=== PATIENT | male | born 1995 | race Caucasian/White ===

== ENCOUNTER 2018-10-10 08:20 | Emergency (ER) | payer MEDICAID, SELFPAY ==
--- NOTE | 2018-10-10 08:41 | W.ED.GENAD ---
Discharge Plan Disposition Patient Disposition: HOME Discharge Details Chief Complaint: Abd Prob Clinical Impression: Acute left flank pain, Renal calculus, left, Left leg swelling Primary Care Provider: Sierra Guy ED Provider: Pineda Landin Home Meds and New Rx's Prescriptions: No Action No Known Home Meds RF: 0 Discharge Instructions Instructions: Kidney Stones (ED) Additional Instructions: It is suspected that you had a kidney stone and have passed this. Please follow-up with your primary care physician. Be sure to discuss the fact that you likely had a renal stone. Please also discuss your left leg swelling. Additional outpatient diagnostic testing may be necessary. Call on Thursday to arrange follow-up. Return to the emergency department for any worsening or new concerning symptoms. Referrals: Sierra Guy, [employer] [Primary Care Provider] - Discharge Data Discharge Date/Time-TO BE ENTERED AT DEPARTURE: 10/10/18 10:59 Medical Decision Making 8:45 -- 23yo m here with left flank pain for the past 1-2 hours, now mild. No history of renal stones. Plan to obtain CT a/p to assess for acute surgical pathology including impacted renal stone vs other. Pain is currently tolerable. 9:30 -- Patient passed tiny stone in urine per nursing and now feels much better. Unfortunately, lab specimen was mislabeled and discarded by lab. No indication for emergent imaging at this time. We will give ibuprofen. 10:30 --urinalysis reviewed: Hematuria present, 0-2 WBCs and 0-2 to RBCs. Pain resolved. Plan at this time is to have the patient follow-up with PCP regarding his lower extremity edema. I explained that additional diagnostic testing may be necessary. He plans to call to schedule appointment on Thursday. I explained that he should return immediately for any worsening or new concerning symptoms. Patient verbalized understanding of discharge instructions. HPI General Mode of arrival: ambulatory. Date/Time Provider Initiated Documentation: 10/10/18 08:24. Limitations to Documentation: no limitations. Information obtained by: patient. HPI Narrative: 23-year-old male presents with chief complaint of flank pain. Patient notes he woke up this morning about 45 minutes prior to arrival with left lateral low back and flank pain. Pain is described as constant ache with intermittent sharp twinges. Pain is been 7/10 at its worst and is currently 1/10. He initially had some associated nausea. No vomiting. No fever. No dysuria or hematuria. No trauma. Related Data Home Medications Medication Instructions Recorded Confirmed Unknown [No Known Home Meds] 10/10/18 10/11/18 Allergies Allergy/AdvReac Type Severity Reaction Status Date / Time No Known Allergies Allergy Verified 10/11/18 15:05 Review of Systems Review of Systems All systems reviewed & are unremarkable except as noted in HPI and below Constitutional Denies fever(s) Hematologic/Lymphatic Comments: lymphedema chronic intermittent [facility] Medical History Obesity (Chronic 04/25/15) Leg edema, left (Chronic 02/23/17) Hypertriglyceridemia (Chronic 09/14/14) BMI 39.0-39.9,adult (Chronic 09/12/14) Attention deficit hyperactivity disorder, 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) History of chicken pox (~1995) Surgical History Tooth extraction Family History Other Diabetes Mother Diabetes Social History Smoking/Tobacco Use Status: Never Alcohol Intake: current Alcohol Intake frequency: a few times a month Drug use: Never Substance use type: does not use Seatbelt use: always 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 Working smoke detector in home: Yes Fire extinguisher in home: Yes Carbon monox detector in home: Yes Firearms in home: Yes Firearms unloaded and locked: Yes Do you feel safe at home: Yes Do you feel safe in your relationship?: Yes Exam Const General: cooperative and no acute distress [facility] Head: normocephalic and atraumatic Mouth: moist mucous membranes Eyes Conjunctivae: normal conjunctivae Sclera: normal sclerae EOM: EOM intact bilaterally Neck Neck: trachea midline Resp Auscultation: clear to auscultation bilaterally, no rales, no rhonchi and no wheezes Cardio Jugular venous pressure: no JVD Rate: regular rate and not tachycardic Rhythm: regular rhythm GI Palpation: soft, not firm, no guarding, no masses, not rigid and nontender Skin General skin exam: no rashes or lesions noted Neuro General: alert, awake and tone normal Extrem General: no edema Psych Appearance: grossly normal
--- NOTE | 2018-10-10 08:44 | ED.GENADUL_ITS ---
Discharge Plan Disposition Patient Disposition: HOME Discharge Details Chief Complaint: Abd Prob Clinical Impression: Acute left flank pain, Renal calculus, left, Left leg swelling Primary Care Provider: Sierra Guy ED Provider: Pineda Landin Home Meds and New Rx's Prescriptions: No Action No Known Home Meds RF: 0 Discharge Instructions Instructions: Kidney Stones (ED) Additional Instructions: It is suspected that you had a kidney stone and have passed this. Please follow-up with your primary care physician. Be sure to discuss the fact that you likely had a renal stone. Please also discuss your left leg swelling. Additional outpatient diagnostic testing may be necessary. Call on Thursday to arrange follow-up. Return to the emergency department for any worsening or new concerning symptoms. Referrals: Sierra Guy, [employer] DEVEL[employer] [Primary Care Provider] - Discharge Data Discharge Date/Time-TO BE ENTERED AT DEPARTURE: 10/10/18 10:59 Medical Decision Making 8:45 -- 23yo m here with left flank pain for the past 1-2 hours, now mild. No history of renal stones. Plan to obtain CT a/p to assess for acute surgical pathology including impacted renal stone vs other. Pain is currently tolerable. 9:30 -- Patient passed tiny stone in urine per nursing and now feels much better. Unfortunately, lab specimen was mislabeled and discarded by lab. No indication for emergent imaging at this time. We will give ibuprofen. 10:30 --urinalysis reviewed: Hematuria present, 0-2 WBCs and 0-2 to RBCs. Pain resolved. Plan at this time is to have the patient follow-up with PCP regarding his lower extremity edema. I explained that additional diagnostic testing may be necessary. He plans to call to schedule appointment on Thursday. I explained that he should return immediately for any worsening or new concerning symptoms. Patient verbalized understanding of discharge instructions. HPI General Mode of arrival: ambulatory . Date/Time Provider Initiated Documentation: 10/10/18 08:24 . Limitations to Documentation: no limitations . Information obtained by: patient . HPI Narrative: 23-year-old male presents with chief complaint of flank pain. Patient notes he woke up this morning about 45 minutes prior to arrival with left lateral low back and flank pain. Pain is described as constant ache with intermittent sharp twinges. Pain is been 7/10 at its worst and is currently 1/10. He initially had some associated nausea. No vomiting. No fever. No dysuria or hematuria. No trauma. Related Data Home Medications Medication Instructions Recorded Confirmed Unknown [No Known Home Meds] 10/10/18 10/11/18 Allergies Allergy/AdvReac Type Severity Reaction Status Date / Time No Known Allergies Allergy Verified 10/11/18 15:05 Review of Systems Review of Systems All systems reviewed & are unremarkable except as noted in HPI and below Constitutional Denies fever(s) Hematologic/Lymphatic Comments: lymphedema chronic intermittent [facility] Medical History Obesity (Chronic 04/25/15) Leg edema, left (Chronic 02/23/17) Hypertriglyceridemia (Chronic 09/14/14) BMI 39.0-39.9,adult (Chronic 09/12/14) Attention deficit hyperactivity disorder, 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) History of chicken pox (~1995) Surgical History Tooth extraction Family History Other Diabetes Mother Diabetes Social History Smoking/Tobacco Use Status: Never Alcohol Intake: current Alcohol Intake frequency: a few times a month Drug use: Never Substance use type: does not use Seatbelt use: always 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 Working smoke detector in home: Yes Fire extinguisher in home: Yes Carbon monox detector in home: Yes Firearms in home: Yes Firearms unloaded and locked: Yes Do you feel safe at home: Yes Do you feel safe in your relationship?: Yes Exam Const General: cooperative and no acute distress [facility] Head: normocephalic and atraumatic Mouth: moist mucous membranes Eyes Conjunctivae: normal conjunctivae Sclera: normal sclerae EOM: EOM intact bilaterally Neck Neck: trachea midline Resp Auscultation: clear to auscultation bilaterally, no rales, no rhonchi and no wheezes Cardio Jugular venous pressure: no JVD Rate: regular rate and not tachycardic Rhythm: regular rhythm GI Palpation: soft, not firm, no guarding, no masses, not rigid and nontender Skin General skin exam: no rashes or lesions noted Neuro General: alert, awake and tone normal Extrem General: no edema Psych Appearance: grossly normal
--- NOTE | 2018-10-10 08:44 | NUR.NOTE ---
Nursing Note: pt awoke at 0730 with sharp LLQ abdominal pain described as coming in waves pt too 1000 MG Tylenol which has decreased pain 6/10 to a 2/10
[2018-10-10 08:46] VITALS: BP 112/54; PULSE 67; RESP 18; TEMP 37.3; O2SAT 98
[2018-10-10 09:59] LABS: Bilirubin Negative (Negative); Blood Small (Negative); Clarity Clear; Glucose Negative (Negative); Ketones Negative (Negative); Leukocyte Esterase Negative (Negative); Nitrite Negative (Negative); Specific Gravity 1.025 (1.005-1.025); Urobilinogen 0.2 EU/dL (Up TO 0.2)
[2018-10-10 10:23] LABS: Epithelial Cells Few HPF (Negative); RBC 0-2 (0-2); WBC 0-2 HPF (0-5)
[2018-10-10 10:24] LABS: Bacteria Negative HPF (Negative); C & S Indicated? No; Casts Negative LPF (Negative); Crystals Negative HPF (Negative); Mucus Trace (Negative)
[2018-10-10 11:02] VITALS: BP 112/54; PULSE 67; RESP 18; TEMP 37.3; O2SAT 98
== END 2018-10-10 10:59 | disposition home or self-care (01) ==
PROVIDERS: Emergency Provider Student in an Organized Health Care Education/Training Program; PCP Nurse Practitioner
DX: N20.0 Calculus of kidney (principal); R60.0 Localized edema
CPT/HCPCS: 99282; 81003; 81015

== ENCOUNTER 2023-10-19 18:19 | Emergency (ER) | payer OTHER, SELFPAY ==
[2023-10-19 18:22] VITALS: BP 116/83; PULSE 79; RESP 13; TEMP 36.7; O2SAT 99
[2023-10-19] MEDS: Lidocaine 5% Patch 1 PATCH TP (19:15)
[2023-10-19] MEDS: Ketorolac 30 MG/ML VIAL IM (19:15)
--- NOTE | 2023-10-19 19:43 | DI.RAD_ITS ---
Exam(s) XR LUMBAR SPINE COMPLETE EXAM: XR LUMBAR SPINE COMPLETE CLINICAL HISTORY: lifting trauma. TECHNIQUE: 2D digital imaging was performed. Five views. COMPARISON: No exams were available for comparison FINDINGS: BONES: No fracture or destructive lesion. Vertebral body heights are maintained. No facet hypertroph y identified. DISKS: Intervertebral disc spaces are maintained. ALIGNMENT: Lumbar spinal alignment is within normal limits. SOFT TISSUE: Normal. IMPRESSION: Unremarkable radiographs of the lumbar spine. DATA REPOSITORY: RADIATION DOSE DELIVERED:
--- NOTE | 2023-10-19 21:10 | DI.VRAD_ITS ---
PROCEDURE INFORMATION: Exam: XR Lumbosacral Spine Exam date and time: 10/19/2023 7:27 PM Age: 28 years old Clinical indication: Injury or trauma; Sprain or strain, lumbar ligaments; Injury date: 10/19/23; Patient HX: Lifting trauma TECHNIQUE: Imaging protocol: Radiologic exam of the lumbosacral spine. Views: 4 or 5 views. COMPARISON: No relevant prior studies available. FINDINGS: Bones/joints: Normal alignment. No acute fracture. Foramina and central canal appear unremarkable. Soft tissues: Unremarkable. IMPRESSION: No acute findings. Dictated and Authenticated by: Linda Rooney MD. Ordering:HITESH Mcmanus MD
--- NOTE | 2023-10-19 21:14 | ED.GENADUL_ITS ---
Discharge Plan Disposition Patient Disposition: Home Discharge Details Clinical Impression: Lumbosacral strain Primary Care Provider: Unknown,Unknown ED Provider: Yonathan Barrett Home Meds and New Rx's Prescriptions: New diclofenac potassium 50 mg tablet 50 mg PO TID PRN (Reason: pain) Qty: 15 0RF Discharge Instructions Instructions: Low Back Pain ED Additional Instructions: Return to the emergency department for any new or significant worsening of symptoms as discussed otherwise follow-up with occupational medicine for reassessment preferably in 3 days. Referrals: Occupational Medicine [Provider Group] - 3 days HPI General Mode of arrival: ambulatory . Date/Time Provider Initiated Documentation: 10/19/23 18:44 . Limitations to Documentation: no limitations . Information obtained by: patient and RN notes reviewed . History of Present Illness 28 year old M presents to the emergency department with the chief complaint of Low back pain, described as moderate, Quality is described as sharp, and is localized to the back. Patient started experiencing this hour(s) (8) and it has been constant. Rest improves symptom(s), Movement worsens symptoms . Patient notes no other symptoms.. Patient did receive the following treatments prior to arrival, other (Acetaminophen) Related Data Home Medications Medication Instructions Recorded Confirmed diclofenac potassium 50 mg tablet 50 mg PO TID PRN pain #15 tabs 10/19/23 Previous Rx's Medication Instructions Recorded diclofenac potassium 50 mg tablet 50 mg PO TID PRN pain #15 tabs 10/19/23 Allergies Allergy/AdvReac Type Severity Reaction Status Date / Time No Known Allergies Allergy Verified 10/19/23 18:25 General Stated Complaint: Nk/Back Pain JADA: 4 Review of Systems Constitutional Constitutional: Denies chills and Denies fever(s) Cardiovascular Cardiovascular: Denies chest pain and Denies dyspnea on exertion Respiratory Respiratory: Denies cough and Denies dyspnea on exertion Gastrointestinal Gastrointestinal: Denies abdominal pain, Denies change in bowel habits, Denies diarrhea, Denies nausea and Denies vomiting Genitourinary Genitourinary: Denies difficulty urinating and Denies urinary incontinence Musculoskeletal Musculoskeletal: Reports as per HPI and Reports back pain Neurologic Neurologic: Denies sensory deficit Exam Const General: cooperative and no acute distress Orientation: alert, awake and oriented x3 Neck Neck: normal visual inspection, full ROM and no meningeal signs Resp Effort & Inspection: normal respiratory effort Auscultation: clear to auscultation bilaterally Cardio Rate: regular rate Rhythm: regular rhythm Heart Sounds: S1 normal and S2 normal Back/Spine/Pelvis Thoracic/Lumbar Spine: pain with thoraco-lumbar ROM and thoraco-lumbar ROM limited Neuro General: patient alert, patient awake and patient oriented x3 DTR's: Rt Patellar: 1+, Lt Patellar: 1+, Rt Ankle: 1+ and Lt Ankle: 1+ Course Vital Signs Vital signs: Vital Signs Temperature 36.7 C 10/19/23 18:22 Pulse 79 10/19/23 18:22 Respiratory Rate 13 10/19/23 18:22 Blood Pressure 116/83 10/19/23 18:22 Pulse Oximetry 99 10/19/23 18:22 Temperature 36.7 C 10/19/23 18:22 Temperature Source Skin 10/19/23 18:22 Pulse 79 10/19/23 18:22 Respiratory Rate 13 10/19/23 18:22 Respiratory Effort Normal, Non-Labored 10/19/23 18:26 Blood Pressure 116/83 10/19/23 18:22 Blood Pressure Position Sitting 10/19/23 18:22 Pulse Oximetry 99 10/19/23 18:22 Oxygen Delivery Method Room Air 10/19/23 18:22 Oxygen Flow Rate 0 10/19/23 18:22 Pain Level 6 10/19/23 18:29 Medical Decision Making Patient here for back pain. Patient reports while at work he was lifting a heavy object and felt a use back immediately started having significant pain and discomfort. States some radiation of pain into the buttocks but denies all other symptoms. Given mechanism of injury I feel that patient is at LOW risk for ABDOMINAL AORTIC ANEURYSM, CAUDA EQUINA SYNDROME, EPIDURAL MASS LESION, SPINAL STENOSIS, OR HERNIATED DISK CAUSING SEVERE STENOSIS, thus I consider the discharge disposition reasonable. Given this is a workplace injury and he was lifting something significantly heavy will obtain plain film imaging to evaluate for compression fracture but have lower suspicion of this. Pending results will give lidocaine patch and ketorolac. Reviewed radiological imaging along with radiologist interpretation that shows no acute findings. Reassessed patient patient did state improvement of overall symptoms which is reassuring. We have discussed the diagnosis and risks, and we agree with discharging home to follow-up with their primary doctor. We also discussed returning to the Emergency Department immediately if new or worsening symptoms occur. We have discussed the symptoms which are most concerning (e.g., saddle anesthesia, urinary or bowel incontinence or retention, changing or worsening pain) that necessitate immediate return. After discussion of diagnosis and plan of care patient has no further needs, questions, or concerns and states clear understanding to return to the emergency department for any worsening symptoms. This documentation was generated using [employer] system, please disregard any oddities of phrase or misspellings. Quality:SDOH Health Related Social Needs: No Data to Display PFSH All Active Problems Lumbosacral strain (Acute) Obesity (Chronic 04/25/15) Leg edema, left (Chronic 02/23/17) Hypertriglyceridemia (Chronic 09/14/14) BMI 39.0-39.9,adult (Chronic 09/12/14) Medical History History of chicken pox (~1995) Surgical History Tooth extraction 4 wisdom teeth extraction Family History Other Diabetes biological members with Mother Diabetes Social History Smoking/Tobacco Use Status: Never Smoking risk assessment performed?: Yes Alcohol Intake: current Alcohol Intake frequency: a few times a month Drug use: Never Substance use type: does not use Seatbelt use: always 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
[2023-10-19 21:25] VITALS: BP 135/72; PULSE 72; O2SAT 98
--- NOTE | 2023-10-20 00:14 | NUR.NOTE ---
Referral faxed to [facility] to f/u in 3 days for back pain.Nursing Note:
== END 2023-10-19 21:26 | disposition home or self-care (01) ==
PROVIDERS: Emergency Provider Nurse Practitioner Family
DX: S39.012A Strain of muscle, fascia and tendon of lower back, initial encounter; X50.0XXA Overexertion from strenuous movement or load, initial encounter; Y99.0 Civilian activity done for income or pay
CPT/HCPCS: 96372; 99284; 72110; J1885